=== PATIENT | male | born 1955 | race Caucasian/White ===

== ENCOUNTER 2021-11-14 02:30 | Inpatient (IN) | payer MEDICARE ==
[2021-11-14 02:45] VITALS: BMI 29.2
[2021-11-14] MEDS ORDERED: Calcium Carbonate 500 MG ChewTAB PO PRN (03:01)
[2021-11-14] MEDS ORDERED: Senokot S 8.6-50 MG TAB PO PRN (03:01)
[2021-11-14] MEDS ORDERED: Ondansetron PF 4 MG/2 ML Vial IVP PRN (03:01)
[2021-11-14] MEDS ORDERED: Guaifenesin DM 100-10/5 ML UDCUP PO PRN (03:01)
[2021-11-14] MEDS ORDERED: Acetaminophen 325 MG TAB PO PRN (03:01)
[2021-11-14] MEDS ORDERED: Azithromycin 250 MG TAB PO SCH (03:15)
[2021-11-14] MEDS ORDERED: Lactated Ringer's 500 ML IV SCH (03:30)
[2021-11-14] MEDS ORDERED: Lactated Ringer's 1,000 ML IV SCH (03:30)
[2021-11-14 06:28] LABS: #Basophils 0.1 10x3/uL (0.0-0.2); #Eosinphils 0.2 10x3/uL (0.0-0.5); #Monocytes 0.9 10x3/uL (0.0-1.1); #Neutrophils 6.4 10x3/uL (1.5-8.4); %Basophils 0.7 % (0.0-2.0); %Eosinophils 1.7 % (0.0-6.0); %Lymphocytes 14.9 % (18.0-47.0); %Monocytes 10.3 % (0.0-10.0); %Neutrophils 71.9 % (40.0-75.0); Hemoglobin 12.1 g/dL (13.5-17.5); Mean Corpuscular HGB CONC 32.4 g/dL (32.0-36.0); Mean Corpuscular Hemoglobin 32.8 pg (27.0-33.0); Mean Corpuscular Volume 101.1 fl (81.2-95.1); Mean Platelet Volume 11.7 fl (7.4-10.4); Platelet Count 168 10x3/uL (150-450); RBC Distribution Width 17.1 % (11.5-14.5); Red Blood Cell (RBC) Count 3.69 10x6/uL (4.32-5.72); White Blood Cell (WBC) Count 8.8 10x3/uL (3.5-10.5)
[2021-11-14 06:33] LABS: Anion Gap 13 mmol/L (10-20); BUN (Urea Nitrogen) 15 mg/dL (8.4-25.7); CRP (Inflammatory) 2.18 mg/dL (= or < 0.5); Calc. Creatinine Clearance 105 mL/min (70-130); Calcium 8.7 mg/dL (7.8-10.44); Carbon Dioxide 24 mmol/L (23-31); Chloride 105 mmol/L (98-107); Glucose 122 mg/dL (80-115); Potassium 4.2 mmol/L (3.5-5.1); Sodium 138 mmol/L (136-145)
[2021-11-14] MEDS: Vancomycin HCl 1 GM in Sodium Chloride 0.9% 250 ML 250 ML IVPB SCH ×2 (08:21→20:15)
[2021-11-14] MEDS: HYDROcodone/Acetaminophen 5/325 mg Tablet PO PRN ×3 (08:22→22:54)
[2021-11-14] MEDS: Lisinopril 10 MG TAB PO SCH ×2 (08:23→20:55)
[2021-11-14] MEDS: Carvedilol 12.5 MG TAB PO SCH ×2 (08:24→21:00)
[2021-11-14] MEDS: cefTRIAXone\\ROCEPHIN 2 GM in Sodium Chloride 0.9% 100 ML IVPB SCH (08:24)
[2021-11-14] MEDS: Enoxaparin Sodium 40 MG/0.4 ML SYRINGE SC SCH (08:24)
[2021-11-14 10:03] LABS: Bilirubin Neg (Negative); Blood, Urine Negative (Negative); Clarity Clear (Clear); Glucose, Urine (Dipstick) Normal (Negative); Ketone, Urine Negative (Negative); Leukocyte 25 (Negative); Nitrite Negative (Negative); Protein, Urine (Dipstick) 30 mg/dl (Neg-Trace); Specific Gravity, Urine 1.015 (1.002-1.036); Urobilinogen Normal mg/dL (Less than 2); pH, Urine 6.5 (5.0-9.0)
[2021-11-14 10:09] LABS: Urine Culture Reflex No No
[2021-11-14 10:39] LABS: Bacteria/HPF None Seen HPF (None Seen); RBC/HPF 0-3 HPF (0-3); Squamous Epithelial None Seen HPF (0-3); WBC/HPF None Seen HPF (0-3)
[2021-11-14 12:29] LABS: Hemoglobin A1c 6.3 % (4.0-6.0)
[2021-11-14] MEDS ORDERED: Sodium Chloride 0.9% 250 ML 250 ML ONE (20:24)
[2021-11-15 05:49] LABS: HIV (1/2) Antibody/Antigen Non-Reactive (NonReactive); HIV 1/2 INDEX 0.08 S/CO (<1.00)
[2021-11-15] MEDS: Lisinopril 10 MG TAB PO SCH ×2 (08:19→21:53)
[2021-11-15] MEDS: Carvedilol 12.5 MG TAB PO SCH ×2 (08:19→21:53)
[2021-11-15] MEDS: Enoxaparin Sodium 40 MG/0.4 ML SYRINGE SC SCH (08:19)
[2021-11-15] MEDS: Vancomycin HCl 1 GM in Sodium Chloride 0.9% 250 ML 250 ML IVPB SCH ×2 (08:20→21:00)
[2021-11-15] MEDS ORDERED: FLU VACC QS2021-22(65YR UP)/PF 240 MCG/0.7 ML SYRINGE IM ONE (09:00)
[2021-11-15] MEDS: cefTRIAXone\\ROCEPHIN 2 GM in Sodium Chloride 0.9% 100 ML IVPB SCH (11:44)
[2021-11-15] MEDS: HYDROcodone/Acetaminophen 5/325 mg Tablet PO PRN ×3 (11:53→21:54)
[2021-11-15] MEDS: Morphine 4 MG/ML VIAL SLOW IVP PRN (14:03)
[2021-11-15 15:01] LABS: #Basophils 0.1 10x3/uL (0.0-0.2); #Eosinphils 0.2 10x3/uL (0.0-0.5); #Monocytes 0.7 10x3/uL (0.0-1.1); #Neutrophils 4.2 10x3/uL (1.5-8.4); %Basophils 0.9 % (0.0-2.0); %Eosinophils 3.4 % (0.0-6.0); %Lymphocytes 18.7 % (18.0-47.0); %Monocytes 10.7 % (0.0-10.0); %Neutrophils 65.8 % (40.0-75.0); Hemoglobin 11.2 g/dL (13.5-17.5); Mean Corpuscular HGB CONC 32.3 g/dL (32.0-36.0); Mean Corpuscular Hemoglobin 33.1 pg (27.0-33.0); Mean Corpuscular Volume 102.7 fl (81.2-95.1); Mean Platelet Volume 11.3 fl (7.4-10.4); Platelet Count 157 10x3/uL (150-450); RBC Distribution Width 16.9 % (11.5-14.5); Red Blood Cell (RBC) Count 3.38 10x6/uL (4.32-5.72); White Blood Cell (WBC) Count 6.4 10x3/uL (3.5-10.5)
[2021-11-15 15:22] LABS: Chlam.trachomatis by PCR,Urine Not Detected (NotDetected)
[2021-11-16] MEDS: HYDROcodone/Acetaminophen 5/325 mg Tablet PO PRN ×3 (03:41→23:15)
[2021-11-16 05:31] LABS: Phosphorus 3.4 mg/dL (2.3-4.7)
[2021-11-16 05:32] LABS: ALT (SGPT) 27 U/L (8-55); AST (SGOT) 32 U/L (5-34); Alkaline Phosphatase 113 U/L (40-110); Anion Gap 14 mmol/L (10-20); BUN (Urea Nitrogen) 9 mg/dL (8.4-25.7); Bilirubin, Total 0.4 mg/dL (0.2-1.2); Calc. Creatinine Clearance 106 mL/min (70-130); Calcium 8.6 mg/dL (7.8-10.44); Carbon Dioxide 22 mmol/L (23-31); Chloride 105 mmol/L (98-107); Globulin 4.1 g/dL (2.4-3.5); Glucose 103 mg/dL (80-115); Protein, Total 7.1 g/dL (5.8-8.1); Sodium 137 mmol/L (136-145)
[2021-11-16 05:37] LABS: #Eosinphils 0.2 10x3/uL (0.0-0.5); #Monocytes 0.7 10x3/uL (0.0-1.1); #Neutrophils 3.5 10x3/uL (1.5-8.4); %Basophils 0.7 % (0.0-2.0); %Eosinophils 3.5 % (0.0-6.0); %Lymphocytes 21.5 % (18.0-47.0); %Monocytes 11.7 % (0.0-10.0); %Neutrophils 62.2 % (40.0-75.0); Hemoglobin 11.3 g/dL (13.5-17.5); Mean Corpuscular HGB CONC 32.8 g/dL (32.0-36.0); Mean Corpuscular Hemoglobin 33.2 pg (27.0-33.0); Mean Corpuscular Volume 101.2 fl (81.2-95.1); Mean Platelet Volume 11.5 fl (7.4-10.4); Platelet Count 144 10x3/uL (150-450); RBC Distribution Width 16.7 % (11.5-14.5); White Blood Cell (WBC) Count 5.6 10x3/uL (3.5-10.5)
[2021-11-16] MEDS: Vancomycin HCl 1 GM in Sodium Chloride 0.9% 250 ML 250 ML IVPB SCH ×2 (08:45→21:21)
[2021-11-16] MEDS: Enoxaparin Sodium 40 MG/0.4 ML SYRINGE SC SCH (09:02)
[2021-11-16] MEDS: Lisinopril 10 MG TAB PO SCH ×2 (09:02→20:11)
[2021-11-16] MEDS: Carvedilol 12.5 MG TAB PO SCH ×2 (09:03→20:12)
[2021-11-16] MEDS: cefTRIAXone\\ROCEPHIN 2 GM in Sodium Chloride 0.9% 100 ML IVPB SCH (09:03)
[2021-11-16] MEDS: Morphine 4 MG/ML VIAL SLOW IVP PRN ×2 (20:09)
[2021-11-16] MEDS: Melatonin 3 MG TAB PO SCH (21:27)
[2021-11-17] MEDS: Morphine 4 MG/ML VIAL SLOW IVP PRN ×2 (03:29→21:20)
[2021-11-17 04:42] LABS: Hemoglobin 12.1 g/dL (13.5-17.5); Mean Corpuscular Hemoglobin 32.9 pg (27.0-33.0); Mean Corpuscular Volume 102.7 fl (81.2-95.1); Mean Platelet Volume 11.5 fl (7.4-10.4); Platelet Count 156 10x3/uL (150-450); RBC Distribution Width 16.9 % (11.5-14.5); Red Blood Cell (RBC) Count 3.68 10x6/uL (4.32-5.72); White Blood Cell (WBC) Count 5.7 10x3/uL (3.5-10.5)
[2021-11-17 04:49] LABS: Anion Gap 14 mmol/L (10-20); BUN (Urea Nitrogen) 14 mg/dL (8.4-25.7); Calc. Creatinine Clearance 87 mL/min (70-130); Calcium 8.6 mg/dL (7.8-10.44); Carbon Dioxide 22 mmol/L (23-31); Chloride 108 mmol/L (98-107); Glucose 115 mg/dL (80-115); Potassium 4.4 mmol/L (3.5-5.1); Sodium 140 mmol/L (136-145)
[2021-11-17] MEDS: Vancomycin HCl 1 GM in Sodium Chloride 0.9% 250 ML 250 ML IVPB SCH ×2 (08:34→21:05)
[2021-11-17] MEDS: cefTRIAXone\\ROCEPHIN 2 GM in Sodium Chloride 0.9% 100 ML IVPB SCH (08:35)
[2021-11-17] MEDS: Lisinopril 10 MG TAB PO SCH ×2 (08:35→21:06)
[2021-11-17] MEDS: Carvedilol 12.5 MG TAB PO SCH ×2 (08:36→21:06)
[2021-11-17] MEDS: Enoxaparin Sodium 40 MG/0.4 ML SYRINGE SC SCH (08:36)
[2021-11-17] MEDS: HYDROcodone/Acetaminophen 5/325 mg Tablet PO PRN (09:37)
[2021-11-17] MEDS ORDERED: HYDROmorphone 0.5 MG/0.5 ML SYRINGE SLOW IVP SCH (16:15)
[2021-11-17] MEDS: HYDROcodone/Acetaminophen 10/325 mg Tablet PO PRN ×2 (16:54→23:42)
[2021-11-17] MEDS: Melatonin 3 MG TAB PO SCH (21:06)
[2021-11-17] MEDS: Triple Antibiotic Oint 1 GM Packet TOP SCH ×2 (21:19→21:29)
[2021-11-17] MEDS: diphenhydrAMINE 25 MG CAP PO PRN (23:46)
[2021-11-18] MEDS: HYDROcodone/Acetaminophen 10/325 mg Tablet PO PRN ×2 (06:46→11:31)
[2021-11-18 07:22] LABS: Vancomycin, Trough 21.5 ug/mL
[2021-11-18] MEDS: Carvedilol 12.5 MG TAB PO SCH ×2 (08:58→21:51)
[2021-11-18] MEDS: Enoxaparin Sodium 40 MG/0.4 ML SYRINGE SC SCH (08:59)
[2021-11-18] MEDS: Lisinopril 10 MG TAB PO SCH ×2 (08:59→21:51)
[2021-11-18] MEDS: cefTRIAXone\\ROCEPHIN 2 GM in Sodium Chloride 0.9% 100 ML IVPB SCH (11:32)
[2021-11-18] MEDS: Triple Antibiotic Oint 1 GM Packet TOP SCH ×2 (12:55→21:52)
[2021-11-18] MEDS: Vancomycin HCl 750 MG in Sodium Chloride 0.9% 250 ML 250 ML IVPB SCH ×2 (12:55→23:08)
[2021-11-18] MEDS: Morphine 4 MG/ML VIAL SLOW IVP PRN ×3 (12:56→21:53)
[2021-11-18] MEDS: diphenhydrAMINE 25 MG CAP PO PRN (21:51)
[2021-11-18] MEDS: Melatonin 3 MG TAB PO SCH (21:52)
[2021-11-19] MEDS: Morphine 4 MG/ML VIAL SLOW IVP PRN ×2 (01:47→09:43)
[2021-11-19] MEDS: HYDROcodone/Acetaminophen 10/325 mg Tablet PO PRN ×2 (06:37→12:51)
[2021-11-19] MEDS: cefTRIAXone\\ROCEPHIN 2 GM in Sodium Chloride 0.9% 100 ML IVPB SCH (09:34)
[2021-11-19] MEDS: Carvedilol 12.5 MG TAB PO SCH (09:46)
[2021-11-19] MEDS: Lisinopril 10 MG TAB PO SCH (09:46)
[2021-11-19] MEDS: Enoxaparin Sodium 40 MG/0.4 ML SYRINGE SC SCH (09:46)
[2021-11-19] MEDS: Triple Antibiotic Oint 1 GM Packet TOP SCH (10:40)
[2021-11-19] MEDS: Vancomycin HCl 750 MG in Sodium Chloride 0.9% 250 ML 250 ML IVPB SCH (10:41)
[2021-11-19 11:29] LABS: #Basophils 0.1 10x3/uL (0.0-0.2); #Eosinphils 0.1 10x3/uL (0.0-0.5); #Monocytes 0.7 10x3/uL (0.0-1.1); #Neutrophils 3.9 10x3/uL (1.5-8.4); %Basophils 0.8 % (0.0-2.0); %Eosinophils 1.4 % (0.0-6.0); %Monocytes 11.3 % (0.0-10.0); %Neutrophils 62.2 % (40.0-75.0); Hemoglobin 11.1 g/dL (13.5-17.5); Mean Corpuscular HGB CONC 32.1 g/dL (32.0-36.0); Mean Corpuscular Hemoglobin 33.2 pg (27.0-33.0); Mean Corpuscular Volume 103.6 fl (81.2-95.1); Mean Platelet Volume 11.7 fl (7.4-10.4); Platelet Count 161 10x3/uL (150-450); RBC Distribution Width 17.4 % (11.5-14.5); Red Blood Cell (RBC) Count 3.34 10x6/uL (4.32-5.72); White Blood Cell (WBC) Count 6.3 10x3/uL (3.5-10.5)
[2021-11-19 11:31] LABS: Anion Gap 12 mmol/L (10-20); BUN (Urea Nitrogen) 21 mg/dL (8.4-25.7); Calc. Creatinine Clearance 95 mL/min (70-130); Calcium 8.7 mg/dL (7.8-10.44); Carbon Dioxide 25 mmol/L (23-31); Chloride 106 mmol/L (98-107); Glucose 98 mg/dL (80-115); Potassium 4.2 mmol/L (3.5-5.1); Sodium 139 mmol/L (136-145)
[2021-11-19 17:36] VITALS: BP 137/82; TEMP 96.8
== END 2021-11-19 17:10 | disposition home or self-care (01) | DRG 728 ==
LOC: CSHTELE 02:30
PROVIDERS: ADMIT Student in an Organized Health Care Education/Training Program; ATTEND Internal Medicine
DX: N48.22 Cellulitis of corpus cavernosum and penis (principal); I42.8 Other cardiomyopathies; I13.0 Hypertensive heart and chronic kidney disease with heart failure and stage 1 through stage 4 chronic kidney disease, or unspecified chronic kidney disease; I50.42 Chronic combined systolic (congestive) and diastolic (congestive) heart failure; I42.0 Dilated cardiomyopathy; N18.2 Chronic kidney disease, stage 2 (mild); J44.9 Chronic obstructive pulmonary disease, unspecified; E78.5 Hyperlipidemia, unspecified; I25.10 Atherosclerotic heart disease of native coronary artery without angina pectoris; G89.29 Other chronic pain; N48.29 Other inflammatory disorders of penis; N52.9 Male erectile dysfunction, unspecified; L98.499 Non-pressure chronic ulcer of skin of other sites with unspecified severity; R73.03 Prediabetes; M54.9 Dorsalgia, unspecified; Z87.891 Personal history of nicotine dependence; Z91.14 Patient's other noncompliance with medication regimen; Z88.1 Allergy status to other antibiotic agents; Z79.82 Long term (current) use of aspirin; Z79.899 Other long term (current) drug therapy; Z98.1 Arthrodesis status
CPT/HCPCS: 36415; 80048; 80053; 80202; 81001; 82607; 82746; 83036; 83735; 84100; 85025; 85027; 86140; 87040; 87086; 87389; 87491; 87591; 93005; 93010; 93306; 94760; J0696; J1170; J1650; J2270; J2405; J3370; J3490; J7050; J7120

== ENCOUNTER 2022-11-03 04:39 | Inpatient (IN) | payer MEDICARE, OTHER ==
[2022-11-03 05:19] LABS: #Basophils 0.1 10x3/uL (0.0-0.2); #Monocytes 0.9 10x3/uL (0.0-1.1); #Neutrophils 6.9 10x3/uL (1.5-8.4); %Basophils 0.5 % (0.0-2.0); %Eosinophils 0.3 % (0.0-6.0); %Lymphocytes 14.6 % (18.0-47.0); %Monocytes 9.4 % (0.0-10.0); Hemoglobin 12.9 g/dL (13.5-17.5); Mean Corpuscular HGB CONC 32.1 g/dL (32.0-36.0); Mean Corpuscular Hemoglobin 34.6 pg (27.0-33.0); Mean Corpuscular Volume 107.8 fl (81.2-95.1); Mean Platelet Volume 12.7 fl (7.4-10.4); Platelet Count 125 10x3/uL (150-450); RBC Distribution Width 15.2 % (11.5-14.5); Red Blood Cell (RBC) Count 3.73 10x6/uL (4.32-5.72); White Blood Cell (WBC) Count 9.2 10x3/uL (3.5-10.5)
[2022-11-03 05:32] LABS: ALT (SGPT) 54 U/L (8-55); AST (SGOT) 51 U/L (5-34); Albumin 3.8 g/dL (3.4-4.8); Alkaline Phosphatase 121 U/L (40-110); Anion Gap 17 mmol/L (10-20); BUN (Urea Nitrogen) 21 mg/dL (8.4-25.7); Bilirubin, Total 1.3 mg/dL (0.2-1.2); Calc. Creatinine Clearance 0 mL/min (70-130); Calcium 8.8 mg/dL (7.8-10.44); Carbon Dioxide 18 mmol/L (23-31); Chloride 107 mmol/L (98-107); Estimated GFR 62; Globulin 3.9 g/dL (2.4-3.5); Glucose 140 mg/dL (80-115); Potassium 4.2 mmol/L (3.5-5.1); Protein, Total 7.7 g/dL (5.8-8.1); Sodium 138 mmol/L (136-145)
[2022-11-03 05:37] LABS: Band 1 % (5-11); Eosinophils 2 % (0-10); Lymphocytes 10 % (21-51); Monocytes 10 % (0-10); Neutrophil 75 % (42-75); Platelet Morphology Comment Appears Decreased; Reactive Lymphocytes 1 % (0-10)
[2022-11-03 05:38] LABS: Anisocytosis SLIGHT = 6-15 cells (100X) (0-5/hpf); Elliptocytes SLIGHT = 2-5 cells (100X) (0-1/hpf); Macrocytosis SLIGHT = 6-15 cells (100X) (0-5/hpf); Microcytosis SLIGHT = 6-15 cells (100X) (0-5/hpf); Polychromasia SLIGHT = 2-3 cells (100X) (0-2/hpf)
[2022-11-03 05:52] LABS: SARS-CoV-2 NAA Rapid Test Not Detected (NotDetected)
[2022-11-03] MEDS ORDERED: Aspirin Chewable 81 MG TAB ONE (05:52)
[2022-11-03 05:56] LABS: CKMB 2.3 ng/mL (0-6.6)
[2022-11-03 08:55] LABS: Troponin I 0.038 ng/mL (< 0.028)
[2022-11-03] MEDS ORDERED: Morphine 4 MG/ML VIAL ONE (10:11)
[2022-11-03] MEDS ORDERED: Ondansetron PF 4 MG/2 ML Vial IVP PRN (10:47)
[2022-11-03] MEDS ORDERED: Ondansetron ODT 4 MG TAB PO PRN (10:47)
[2022-11-03] MEDS ORDERED: Senokot S 8.6-50 MG TAB PO PRN (10:47)
[2022-11-03] MEDS ORDERED: Ipratropium/Albuterol 3 ML NEB NEB PRN (10:51)
[2022-11-03] MEDS ORDERED: FLU VACC QS2022-23(65YR UP)/PF 240 MCG/0.7 ML SYRINGE IM ONE (11:00)
[2022-11-03] MEDS ORDERED: Furosemide 20 MG/2 ML VIAL SLOW IVP SCH (11:00)
[2022-11-03] MEDS ORDERED: Electrolyte Replacement Protocol 1 EACH FS SCH (11:00)
[2022-11-03 11:14] LABS: Magnesium 1.9 mg/dL (1.6-2.6)
[2022-11-03 11:16] LABS: Troponin I 0.025 ng/mL (< 0.028)
[2022-11-03] MEDS ORDERED: Magnesium 2 GM/50 ML(in water) 2 GM in Premix Bag 1 BAG IVPB SCH (12:00)
[2022-11-03] MEDS: Lidocaine 5% Patch TD SCH (12:36)
[2022-11-03] MEDS: Morphine 2 MG/ML VIAL SLOW IVP PRN ×2 (16:08→20:56)
[2022-11-03] MEDS: Mometasone/Formoterol 200/5 60 PUFF INH SCH (19:25)
[2022-11-03] MEDS: Famotidine 20 MG TAB PO SCH (20:50)
[2022-11-03] MEDS: Atorvastatin Calcium 20 MG TAB PO SCH (20:50)
[2022-11-03] MEDS ORDERED: Lisinopril 10 MG TAB PO SCH (21:00)
[2022-11-03] MEDS: Transdermal Patch Removal LIDOCAINE TOP SCH (23:28)
[2022-11-04] MEDS: Morphine 2 MG/ML VIAL SLOW IVP PRN ×3 (02:57→18:02)
[2022-11-04 05:04] LABS: #Monocytes 1.4 10x3/uL (0.0-1.1); #Neutrophils 10.3 10x3/uL (1.5-8.4); %Basophils 0.2 % (0.0-2.0); %Eosinophils 0.1 % (0.0-6.0); %Monocytes 10.6 % (0.0-10.0); %Neutrophils 77.6 % (40.0-75.0); Hemoglobin 12.3 g/dL (13.5-17.5); Mean Corpuscular HGB CONC 31.7 g/dL (32.0-36.0); Mean Corpuscular Hemoglobin 34.3 pg (27.0-33.0); Mean Corpuscular Volume 108.1 fl (81.2-95.1); Mean Platelet Volume 12.7 fl (7.4-10.4); Platelet Count 120 10x3/uL (150-450); Red Blood Cell (RBC) Count 3.59 10x6/uL (4.32-5.72); White Blood Cell (WBC) Count 13.3 10x3/uL (3.5-10.5)
[2022-11-04 05:10] VITALS: BMI 29.7
[2022-11-04 05:19] LABS: Anion Gap 16 mmol/L (10-20); BUN (Urea Nitrogen) 42 mg/dL (8.4-25.7); Calc. Creatinine Clearance 58 mL/min (70-130); Calcium 8.7 mg/dL (7.8-10.44); Carbon Dioxide 21 mmol/L (23-31); Chloride 106 mmol/L (98-107); Estimated GFR 49; Glucose 143 mg/dL (80-115); Phosphorus 4.5 mg/dL (2.3-4.7); Potassium 4.6 mmol/L (3.5-5.1); Sodium 138 mmol/L (136-145)
[2022-11-04 05:35] LABS: Platelet Morphology Comment Appears Decreased
[2022-11-04 05:36] LABS: Anisocytosis SLIGHT = 6-15 cells (100X) (0-5/hpf); Large Platelets SLIGHT; Macrocytosis SLIGHT = 6-15 cells (100X) (0-5/hpf); Microcytosis SLIGHT = 6-15 cells (100X) (0-5/hpf)
[2022-11-04] MEDS: Mometasone/Formoterol 200/5 60 PUFF INH SCH ×2 (07:10→21:45)
[2022-11-04] MEDS: predniSONE 20 MG TAB PO SCH (09:19)
[2022-11-04] MEDS: Aspirin Chewable 81 MG TAB PO SCH (09:19)
[2022-11-04] MEDS: Famotidine 20 MG TAB PO SCH ×2 (09:19→20:40)
[2022-11-04] MEDS: Lisinopril 10 MG TAB PO SCH (09:20)
[2022-11-04] MEDS: Lidocaine 5% Patch TD SCH (13:01)
[2022-11-04] MEDS ORDERED: Azithromycin 500 MG in Sodium Chloride 0.9% 250 ML 250 ML IVPB SCH (17:00)
[2022-11-04] MEDS: Carvedilol 3.125 MG TAB PO SCH (18:02)
[2022-11-04] MEDS: Acetaminophen 325 MG TAB PO PRN (20:40)
[2022-11-04] MEDS: Atorvastatin Calcium 20 MG TAB PO SCH (20:41)
[2022-11-04] MEDS: Transdermal Patch Removal LIDOCAINE TOP SCH (23:21)
[2022-11-05] MEDS: Guaifenesin DM 100-10/5 ML UDCUP PO PRN ×2 (00:35→17:21)
[2022-11-05 04:59] LABS: ALT (SGPT) 56 U/L (8-55); AST (SGOT) 53 U/L (5-34); Albumin 3.6 g/dL (3.4-4.8); Alkaline Phosphatase 102 U/L (40-110); Anion Gap 14 mmol/L (10-20); BUN (Urea Nitrogen) 48 mg/dL (8.4-25.7); Bilirubin, Total 0.5 mg/dL (0.2-1.2); Calc. Creatinine Clearance 60 mL/min (70-130); Calcium 8.7 mg/dL (7.8-10.44); Carbon Dioxide 23 mmol/L (23-31); Chloride 105 mmol/L (98-107); Estimated GFR 52; Globulin 3.8 g/dL (2.4-3.5); Glucose 130 mg/dL (80-115); Magnesium 2.9 mg/dL (1.6-2.6); Potassium 4.9 mmol/L (3.5-5.1); Protein, Total 7.4 g/dL (5.8-8.1); Sodium 137 mmol/L (136-145)
[2022-11-05 05:09] LABS: #Monocytes 0.9 10x3/uL (0.0-1.1); #Neutrophils 9.8 10x3/uL (1.5-8.4); %Basophils 0.2 % (0.0-2.0); %Eosinophils 0.1 % (0.0-6.0); %Lymphocytes 8.3 % (18.0-47.0); %Monocytes 7.3 % (0.0-10.0); %Neutrophils 83.7 % (40.0-75.0); Hemoglobin 12.5 g/dL (13.5-17.5); Mean Corpuscular HGB CONC 31.5 g/dL (32.0-36.0); Mean Corpuscular Hemoglobin 34.4 pg (27.0-33.0); Mean Corpuscular Volume 109.4 fl (81.2-95.1); Mean Platelet Volume 12.8 fl (7.4-10.4); Platelet Count 129 10x3/uL (150-450); RBC Distribution Width 15.2 % (11.5-14.5); Red Blood Cell (RBC) Count 3.63 10x6/uL (4.32-5.72); White Blood Cell (WBC) Count 11.7 10x3/uL (3.5-10.5)
[2022-11-05 05:55] LABS: Anisocytosis SLIGHT = 6-15 cells (100X) (0-5/hpf); Macrocytosis SLIGHT = 6-15 cells (100X) (0-5/hpf); Microcytosis SLIGHT = 6-15 cells (100X) (0-5/hpf); Platelet Morphology Comment Appears Decreased
[2022-11-05] MEDS: Mometasone/Formoterol 200/5 60 PUFF INH SCH ×2 (07:15→21:00)
[2022-11-05] MEDS: Famotidine 20 MG TAB PO SCH ×2 (10:04→21:20)
[2022-11-05] MEDS: Aspirin Chewable 81 MG TAB PO SCH (10:04)
[2022-11-05] MEDS: Lisinopril 10 MG TAB PO SCH (10:05)
[2022-11-05] MEDS: Carvedilol 3.125 MG TAB PO SCH ×2 (10:05→17:09)
[2022-11-05] MEDS: predniSONE 20 MG TAB PO SCH (10:10)
[2022-11-05] MEDS: Lidocaine 5% Patch TD SCH (11:30)
[2022-11-05] MEDS ORDERED: Azithromycin 500 MG in Sodium Chloride 0.9% 250 ML 250 ML IVPB SCH (17:00)
[2022-11-05] MEDS: Acetaminophen 325 MG TAB PO PRN (17:07)
[2022-11-05 17:33] LABS: Bilirubin Neg (Negative); Blood, Urine Negative (Negative); Clarity Clear (Clear); Glucose, Urine (Dipstick) Normal (Negative); Ketone, Urine Negative (Negative); Leukocyte Negative (Negative); Nitrite Negative (Negative); Protein, Urine (Dipstick) 100 mg/dl (Neg-Trace); Urobilinogen Normal mg/dL (Less than 2)
[2022-11-05 17:40] LABS: Bacteria/HPF Rare-Few HPF (None Seen); CAUTI Indications for Culture Dysuria,urgency,freq; RBC/HPF 0-3 HPF (0-3); Squamous Epithelial 0-3 HPF (0-3); WBC/HPF 0-3 HPF (0-3)
[2022-11-05 17:41] LABS: Urine Culture Reflex No No
[2022-11-05] MEDS: Atorvastatin Calcium 20 MG TAB PO SCH (21:20)
[2022-11-05] MEDS: Melatonin 3 MG TAB PO PRN (21:20)
[2022-11-05] MEDS: Morphine 2 MG/ML VIAL SLOW IVP PRN (21:24)
[2022-11-05] MEDS: Transdermal Patch Removal LIDOCAINE TOP SCH (23:30)
[2022-11-06 04:32] LABS: #Monocytes 0.7 10x3/uL (0.0-1.1); #Neutrophils 7.9 10x3/uL (1.5-8.4); %Basophils 0.1 % (0.0-2.0); %Lymphocytes 10.7 % (18.0-47.0); %Monocytes 7.6 % (0.0-10.0); %Neutrophils 81.1 % (40.0-75.0); Hemoglobin 12.1 g/dL (13.5-17.5); Mean Corpuscular HGB CONC 31.4 g/dL (32.0-36.0); Mean Corpuscular Volume 108.1 fl (81.2-95.1); Mean Platelet Volume 12.9 fl (7.4-10.4); Platelet Count 117 10x3/uL (150-450); RBC Distribution Width 14.8 % (11.5-14.5); Red Blood Cell (RBC) Count 3.56 10x6/uL (4.32-5.72); White Blood Cell (WBC) Count 9.7 10x3/uL (3.5-10.5)
[2022-11-06 04:43] LABS: Anion Gap 14 mmol/L (10-20); BUN (Urea Nitrogen) 54 mg/dL (8.4-25.7); Calc. Creatinine Clearance 58 mL/min (70-130); Calcium 8.5 mg/dL (7.8-10.44); Carbon Dioxide 21 mmol/L (23-31); Chloride 106 mmol/L (98-107); Estimated GFR 49; Glucose 182 mg/dL (80-115); Potassium 5.1 mmol/L (3.5-5.1); Sodium 136 mmol/L (136-145)
[2022-11-06] MEDS: Morphine 2 MG/ML VIAL SLOW IVP PRN ×2 (08:04→17:40)
[2022-11-06] MEDS: Famotidine 20 MG TAB PO SCH ×2 (08:05→20:49)
[2022-11-06] MEDS: Carvedilol 3.125 MG TAB PO SCH ×2 (08:05→17:41)
[2022-11-06] MEDS: predniSONE 20 MG TAB PO SCH (08:06)
[2022-11-06] MEDS: Aspirin Chewable 81 MG TAB PO SCH (08:06)
[2022-11-06] MEDS: Lisinopril 10 MG TAB PO SCH (09:00)
[2022-11-06] MEDS: Mometasone/Formoterol 200/5 60 PUFF INH SCH ×2 (10:48→19:59)
[2022-11-06] MEDS: Lidocaine 5% Patch TD SCH (12:22)
[2022-11-06] MEDS: Azithromycin 500 MG in Sodium Chloride 0.9% 250 ML 250 ML IVPB SCH (17:41)
[2022-11-06] MEDS: Atorvastatin Calcium 20 MG TAB PO SCH (20:49)
[2022-11-06] MEDS: Transdermal Patch Removal LIDOCAINE TOP SCH (23:30)
[2022-11-07] MEDS: Morphine 2 MG/ML VIAL SLOW IVP PRN ×3 (04:51→18:10)
[2022-11-07 05:29] LABS: #Neutrophils 6.4 10x3/uL (1.5-8.4); %Basophils 0.1 % (0.0-2.0); %Eosinophils 0.1 % (0.0-6.0); %Lymphocytes 19.4 % (18.0-47.0); %Monocytes 10.4 % (0.0-10.0); %Neutrophils 69.5 % (40.0-75.0); Hemoglobin 12.8 g/dL (13.5-17.5); Mean Corpuscular HGB CONC 31.4 g/dL (32.0-36.0); Mean Corpuscular Volume 108.2 fl (81.2-95.1); Mean Platelet Volume 12.5 fl (7.4-10.4); Platelet Count 108 10x3/uL (150-450); RBC Distribution Width 15.1 % (11.5-14.5); Red Blood Cell (RBC) Count 3.76 10x6/uL (4.32-5.72); White Blood Cell (WBC) Count 9.2 10x3/uL (3.5-10.5)
[2022-11-07 05:46] LABS: Anion Gap 17 mmol/L (10-20); BUN (Urea Nitrogen) 51 mg/dL (8.4-25.7); Calc. Creatinine Clearance 67 mL/min (70-130); Calcium 8.9 mg/dL (7.8-10.44); Carbon Dioxide 19 mmol/L (23-31); Chloride 109 mmol/L (98-107); Estimated GFR 58; Glucose 127 mg/dL (80-115); Potassium 4.7 mmol/L (3.5-5.1); Sodium 140 mmol/L (136-145)
[2022-11-07] MEDS: Mometasone/Formoterol 200/5 60 PUFF INH SCH ×2 (07:30→18:51)
[2022-11-07] MEDS: Famotidine 20 MG TAB PO SCH ×2 (12:15→21:25)
[2022-11-07] MEDS: Lidocaine 5% Patch TD SCH (12:15)
[2022-11-07] MEDS: predniSONE 20 MG TAB PO SCH (12:15)
[2022-11-07] MEDS: Aspirin Chewable 81 MG TAB PO SCH (12:16)
[2022-11-07] MEDS: Carvedilol 3.125 MG TAB PO SCH (12:16)
[2022-11-07] MEDS: Lisinopril 10 MG TAB PO SCH (12:16)
[2022-11-07] MEDS: Folic Acid 1 MG TAB PO SCH (12:16)
[2022-11-07] MEDS: Azithromycin 500 MG in Sodium Chloride 0.9% 250 ML 250 ML IVPB SCH (18:10)
[2022-11-07] MEDS: Carvedilol 6.25 MG TAB PO SCH (18:13)
[2022-11-07] MEDS: Atorvastatin Calcium 20 MG TAB PO SCH (21:25)
[2022-11-07] MEDS: Acetaminophen 325 MG TAB PO PRN (22:21)
[2022-11-07] MEDS: Melatonin 3 MG TAB PO PRN (22:21)
[2022-11-08] MEDS: Morphine 2 MG/ML VIAL SLOW IVP PRN ×3 (00:33→10:10)
[2022-11-08] MEDS: Transdermal Patch Removal LIDOCAINE TOP SCH (01:11)
[2022-11-08 06:03] LABS: #Monocytes 0.8 10x3/uL (0.0-1.1); #Neutrophils 6.1 10x3/uL (1.5-8.4); %Basophils 0.1 % (0.0-2.0); %Eosinophils 0.1 % (0.0-6.0); %Monocytes 9.6 % (0.0-10.0); %Neutrophils 74.7 % (40.0-75.0); Hemoglobin 12.3 g/dL (13.5-17.5); Mean Corpuscular HGB CONC 31.5 g/dL (32.0-36.0); Mean Corpuscular Hemoglobin 34.3 pg (27.0-33.0); Mean Corpuscular Volume 108.6 fl (81.2-95.1); Mean Platelet Volume 12.9 fl (7.4-10.4); Platelet Count 117 10x3/uL (150-450); RBC Distribution Width 14.7 % (11.5-14.5); Red Blood Cell (RBC) Count 3.59 10x6/uL (4.32-5.72); White Blood Cell (WBC) Count 8.2 10x3/uL (3.5-10.5)
[2022-11-08 06:15] LABS: Anion Gap 14 mmol/L (10-20); BUN (Urea Nitrogen) 40 mg/dL (8.4-25.7); Calc. Creatinine Clearance 67 mL/min (70-130); Calcium 8.5 mg/dL (7.8-10.44); Carbon Dioxide 21 mmol/L (23-31); Chloride 110 mmol/L (98-107); Estimated GFR 59; Glucose 166 mg/dL (80-115); Magnesium 2.5 mg/dL (1.6-2.6); Potassium 4.5 mmol/L (3.5-5.1); Sodium 140 mmol/L (136-145)
[2022-11-08] MEDS: Folic Acid 1 MG TAB PO SCH (08:42)
[2022-11-08] MEDS: Lisinopril 10 MG TAB PO SCH (08:42)
[2022-11-08] MEDS: predniSONE 20 MG TAB PO SCH (08:42)
[2022-11-08] MEDS: Aspirin Chewable 81 MG TAB PO SCH (08:43)
[2022-11-08] MEDS: Carvedilol 6.25 MG TAB PO SCH ×2 (08:43→17:35)
[2022-11-08] MEDS: Famotidine 20 MG TAB PO SCH ×2 (08:43→21:24)
[2022-11-08] MEDS: Mometasone/Formoterol 200/5 60 PUFF INH SCH ×2 (09:00→21:00)
[2022-11-08 11:19] LABS: Troponin I 0.016 ng/mL (< 0.028)
[2022-11-08] MEDS: Lidocaine 5% Patch TD SCH (12:21)
[2022-11-08] MEDS: Acetaminophen 325 MG TAB PO PRN ×2 (14:54→21:31)
[2022-11-08] MEDS: Azithromycin 500 MG in Sodium Chloride 0.9% 250 ML 250 ML IVPB SCH (17:35)
[2022-11-08] MEDS: Atorvastatin Calcium 20 MG TAB PO SCH (21:25)
[2022-11-09] MEDS: Transdermal Patch Removal LIDOCAINE TOP SCH (00:26)
[2022-11-09] MEDS: Morphine 2 MG/ML VIAL SLOW IVP PRN (00:34)
[2022-11-09 05:23] LABS: #Monocytes 0.6 10x3/uL (0.0-1.1); #Neutrophils 6.1 10x3/uL (1.5-8.4); %Basophils 0.1 % (0.0-2.0); %Lymphocytes 11.4 % (18.0-47.0); %Neutrophils 80.1 % (40.0-75.0); Hemoglobin 11.6 g/dL (13.5-17.5); Mean Corpuscular HGB CONC 31.8 g/dL (32.0-36.0); Mean Corpuscular Hemoglobin 33.8 pg (27.0-33.0); Mean Corpuscular Volume 106.4 fl (81.2-95.1); Mean Platelet Volume 12.3 fl (7.4-10.4); Platelet Count 103 10x3/uL (150-450); RBC Distribution Width 14.7 % (11.5-14.5); Red Blood Cell (RBC) Count 3.43 10x6/uL (4.32-5.72); White Blood Cell (WBC) Count 7.6 10x3/uL (3.5-10.5)
[2022-11-09 05:36] LABS: Anion Gap 12 mmol/L (10-20); BUN (Urea Nitrogen) 34 mg/dL (8.4-25.7); Calc. Creatinine Clearance 74 mL/min (70-130); Calcium 8.3 mg/dL (7.8-10.44); Carbon Dioxide 20 mmol/L (23-31); Chloride 108 mmol/L (98-107); Estimated GFR 67; Glucose 176 mg/dL (80-115); Potassium 4.4 mmol/L (3.5-5.1); Sodium 136 mmol/L (136-145)
[2022-11-09] MEDS: Mometasone/Formoterol 200/5 60 PUFF INH SCH ×2 (07:33→22:25)
[2022-11-09] MEDS: Lisinopril 10 MG TAB PO SCH (09:17)
[2022-11-09] MEDS: Famotidine 20 MG TAB PO SCH ×2 (09:17→21:26)
[2022-11-09] MEDS: Folic Acid 1 MG TAB PO SCH (09:17)
[2022-11-09] MEDS: Aspirin Chewable 81 MG TAB PO SCH (09:17)
[2022-11-09] MEDS: Carvedilol 6.25 MG TAB PO SCH ×2 (09:17→16:13)
[2022-11-09] MEDS: predniSONE 20 MG TAB PO SCH (09:18)
[2022-11-09] MEDS: Lidocaine 5% Patch TD SCH (11:45)
[2022-11-09] MEDS: ALPRAZolam 0.25 MG TAB PO PRN (16:13)
[2022-11-09] MEDS: Acetaminophen 325 MG TAB PO PRN (21:25)
[2022-11-09] MEDS: Atorvastatin Calcium 20 MG TAB PO SCH (21:26)
[2022-11-10] MEDS: Morphine 2 MG/ML VIAL SLOW IVP PRN ×2 (00:21→09:35)
[2022-11-10] MEDS: Transdermal Patch Removal LIDOCAINE TOP SCH (00:28)
[2022-11-10 05:29] LABS: #Monocytes 0.8 10x3/uL (0.0-1.1); #Neutrophils 7.2 10x3/uL (1.5-8.4); %Basophils 0.1 % (0.0-2.0); %Eosinophils 0.1 % (0.0-6.0); %Lymphocytes 14.8 % (18.0-47.0); %Monocytes 8.4 % (0.0-10.0); %Neutrophils 76.2 % (40.0-75.0); Hemoglobin 12.8 g/dL (13.5-17.5); Mean Corpuscular HGB CONC 31.4 g/dL (32.0-36.0); Mean Corpuscular Hemoglobin 33.1 pg (27.0-33.0); Mean Corpuscular Volume 105.4 fl (81.2-95.1); Mean Platelet Volume 12.7 fl (7.4-10.4); Platelet Count 113 10x3/uL (150-450); RBC Distribution Width 14.7 % (11.5-14.5); Red Blood Cell (RBC) Count 3.87 10x6/uL (4.32-5.72); White Blood Cell (WBC) Count 9.4 10x3/uL (3.5-10.5)
[2022-11-10 05:31] LABS: Anion Gap 15 mmol/L (10-20); BUN (Urea Nitrogen) 33 mg/dL (8.4-25.7); Calc. Creatinine Clearance 0 mL/min (70-130); Calcium 9.1 mg/dL (7.8-10.44); Carbon Dioxide 23 mmol/L (23-31); Chloride 106 mmol/L (98-107); Estimated GFR 70; Glucose 123 mg/dL (80-115); Potassium 4.9 mmol/L (3.5-5.1); Sodium 139 mmol/L (136-145)
[2022-11-10] MEDS: Mometasone/Formoterol 200/5 60 PUFF INH SCH ×2 (07:50→20:05)
[2022-11-10] MEDS: Multivitamin W/ Minerals 1 TAB PO SCH (09:36)
[2022-11-10] MEDS: Aspirin Chewable 81 MG TAB PO SCH (09:36)
[2022-11-10] MEDS: Folic Acid 1 MG TAB PO SCH (09:36)
[2022-11-10] MEDS: Lisinopril 10 MG TAB PO SCH (09:37)
[2022-11-10] MEDS: Famotidine 20 MG TAB PO SCH ×2 (09:37→20:32)
[2022-11-10] MEDS: Carvedilol 6.25 MG TAB PO SCH ×2 (09:37→16:33)
[2022-11-10] MEDS: Acetaminophen 325 MG TAB PO PRN ×2 (13:31→20:32)
[2022-11-10] MEDS: Lidocaine 5% Patch TD SCH (13:31)
[2022-11-10] MEDS: Atorvastatin Calcium 20 MG TAB PO SCH (20:32)
[2022-11-10] MEDS: ALPRAZolam 0.25 MG TAB PO PRN (20:32)
[2022-11-11] MEDS: Transdermal Patch Removal LIDOCAINE TOP SCH (00:40)
[2022-11-11 05:59] LABS: Anion Gap 12 mmol/L (10-20); BUN (Urea Nitrogen) 30 mg/dL (8.4-25.7); Calc. Creatinine Clearance 0 mL/min (70-130); Calcium 8.7 mg/dL (7.8-10.44); Carbon Dioxide 21 mmol/L (23-31); Chloride 109 mmol/L (98-107); Estimated GFR 74; Glucose 132 mg/dL (80-115); Potassium 4.2 mmol/L (3.5-5.1); Sodium 138 mmol/L (136-145)
[2022-11-11 06:19] LABS: #Eosinphils 0.2 10x3/uL (0.0-0.5); #Monocytes 0.7 10x3/uL (0.0-1.1); #Neutrophils 5.3 10x3/uL (1.5-8.4); %Basophils 0.2 % (0.0-2.0); %Eosinophils 2.3 % (0.0-6.0); %Lymphocytes 27.1 % (18.0-47.0); %Monocytes 8.5 % (0.0-10.0); %Neutrophils 61.4 % (40.0-75.0); Mean Corpuscular HGB CONC 31.9 g/dL (32.0-36.0); Mean Corpuscular Hemoglobin 33.2 pg (27.0-33.0); Mean Corpuscular Volume 104.1 fl (81.2-95.1); Platelet Count 103 10x3/uL (150-450); RBC Distribution Width 14.7 % (11.5-14.5); Red Blood Cell (RBC) Count 3.91 10x6/uL (4.32-5.72); White Blood Cell (WBC) Count 8.6 10x3/uL (3.5-10.5)
[2022-11-11] MEDS: Famotidine 20 MG TAB PO SCH (08:00)
[2022-11-11] MEDS: Morphine 2 MG/ML VIAL SLOW IVP PRN (08:32)
[2022-11-11] MEDS: Aspirin Chewable 81 MG TAB PO SCH (08:33)
[2022-11-11] MEDS: Carvedilol 6.25 MG TAB PO SCH ×2 (08:33→17:40)
[2022-11-11] MEDS: Folic Acid 1 MG TAB PO SCH (08:33)
[2022-11-11] MEDS: Multivitamin W/ Minerals 1 TAB PO SCH (08:33)
[2022-11-11] MEDS: Lisinopril 10 MG TAB PO SCH (08:34)
[2022-11-11] MEDS: ALPRAZolam 0.25 MG TAB PO PRN (08:45)
[2022-11-11] MEDS: Mometasone/Formoterol 200/5 60 PUFF INH SCH (09:40)
[2022-11-11] MEDS: Lidocaine 5% Patch TD SCH (11:33)
[2022-11-11 16:45] VITALS: BP 137/87; TEMP 97.4
== END 2022-11-11 19:05 | disposition home or self-care (01) | DRG 291 ==
LOC: CSHERS 04:39 → SUATTDRO 04:39 → CSHTELE 08:38 → INTOOBSV 08:38 → OBSVTOIN 11-05 12:27
PROVIDERS: ADMIT Hospitalist; ATTEND Internal Medicine
DX: I13.0 Hypertensive heart and chronic kidney disease with heart failure and stage 1 through stage 4 chronic kidney disease, or unspecified chronic kidney disease (principal); I50.43 Acute on chronic combined systolic (congestive) and diastolic (congestive) heart failure; J96.01 Acute respiratory failure with hypoxia; J44.1 Chronic obstructive pulmonary disease with (acute) exacerbation; S27.321A Contusion of lung, unilateral, initial encounter; I42.8 Other cardiomyopathies; N18.2 Chronic kidney disease, stage 2 (mild); R53.81 Other malaise; R53.1 Weakness; R77.8 Other specified abnormalities of plasma proteins; F41.9 Anxiety disorder, unspecified; E78.5 Hyperlipidemia, unspecified; I25.10 Atherosclerotic heart disease of native coronary artery without angina pectoris; Z91.14 Patient's other noncompliance with medication regimen; Z88.1 Allergy status to other antibiotic agents; Z79.82 Long term (current) use of aspirin; Z79.899 Other long term (current) drug therapy; Z98.890 Other specified postprocedural states; Z82.49 Family history of ischemic heart disease and other diseases of the circulatory system; Z87.891 Personal history of nicotine dependence; Z20.822 Contact with and (suspected) exposure to COVID-19
CPT/HCPCS: 36415; 71045; 76770; 80048; 80053; 81001; 82553; 83735; 83880; 84100; 84145; 84484; 85025; 90471; 90662; 93005; 93010; 93306; 94640; 94664; 94760; 94762; 96366; 96367; 96372; 96374; 96375; 96376; G0008; G0378; J0456; J1650; J1940; J2270; J2272; J3475; J7050; J7512; J7611; J7620; Q0162